=== PATIENT | female | born 2005 | race Caucasian/White ===

== ENCOUNTER → 2024-10-15 08:34 | Outpatient (CLI) | payer OTHER, SELFPAY ==
[2024-10-15 16:19] LABS: HIV 1 & 2 Ab/Ag 4th Gen Combo NEGATIVE (NEGATIVE); Hep C Virus Ab w/Reflex Quant NEGATIVE s/c (NEGATIVE)
[2024-10-16 08:12] LABS: Varicella IgG Antibody Reactive (Non Reactive)
== END ==
PROVIDERS: Referring Provider Family Medicine; Visit Provider Family Medicine
DX: Z34.80 Encounter for supervision of other normal pregnancy, unspecified trimester (principal)
CPT/HCPCS: 36415; 86787; 86803; 86850; 86900; 86901; 87389

== ENCOUNTER → 2024-10-30 08:46 | Outpatient (CLI) | payer OTHER, SELFPAY ==
[2024-10-30 09:56] LABS: Add Manual Diff / Slide Review NO; Basophils Absolute Auto 0 /uL (0-100); Basophils Percent Auto 0.1 % (0-2); Eosinophils Absolute Auto 100 /uL (0-450); Eosinophils Percent Auto 0.7 % (2-4); Hematocrit 34.9 % (36-46); Hemoglobin 11.9 g/dL (12.0-16.0); Lymphocytes Absolute Auto 1200 /uL (1100-4500); Lymphocytes Percent Auto 14.1 % (25-40); Mean Corpuscular HGB Conc 34.2 % (30-36); Mean Corpuscular Hemoglobin 31.5 PG (26-34); Mean Corpuscular Volume 92.1 fL (80-100); Monocytes Absolute Auto 600 /uL (0-900); Monocytes Percent Auto 7.4 % (3-14); Neutrophils Absolute Auto 6500 /uL (1500-7000); Neutrophils Percent Auto 77.7 % (50-75); Platelet Count 156 X10^3/uL (150-400); Red Blood Cell Count 3.78 X10^6/uL (4.0-5.2); White Blood Cell Count 8.4 X10^3/uL (4.5-11.0)
[2024-10-30 10:48] LABS: Hepatitis B Surface Antigen NEGATIVE s/c (NEGATIVE); Rubella Antibody IgG 22.7 IU/mL (>15)
[2024-10-30 12:08] LABS: Appearance Urine UA CLEAR; Bilirubin Urine UA NEGATIVE (NEGATIVE); Color Urine UA YELLOW; Glucose Urine UA NEGATIVE (Negative); Ketones Urine UA NEGATIVE (NEGATIVE); Leukocyte Esterase Urine UA TRACE (NEGATIVE); Nitrite Urine UA NEGATIVE (Negative); Occult Blood Urine UA NEGATIVE (Negative); Protein Urine UA NEGATIVE (Negative); Specific Gravity Urine UA 1.015 (1.000-1.035); Urobilinogen Urine UA 0.2 E.U./dL (0.2)
[2024-10-30 12:12] LABS: pH Urine UA 6.5 (4.5-8.0)
[2024-10-30 12:13] LABS: Urine Volume 10mL (spun)
[2024-10-30 12:14] LABS: Bacteria Urine Many (>30); RBC Urine None Seen (0-5/HPF); Squamous Epithelial Cell Urine 10-30 /HPF (0-5/HPF); WBC Urine 1-5/HPF (0-5/HPF)
[2024-10-31 02:36] LABS: RPR Screen Non Reactive (Non Reactive)
== END ==
PROVIDERS: Referring Provider Family Medicine; Visit Provider Family Medicine
DX: Z34.80 Encounter for supervision of other normal pregnancy, unspecified trimester (principal)
CPT/HCPCS: 36415; 80055; 81003; 81015; 87086

== ENCOUNTER → 2024-11-02 09:16 | Outpatient (CLI) | payer OTHER, SELFPAY ==
[2024-11-02 10:33] LABS: Natera Collection Specimen Collected
== END ==
PROVIDERS: Referring Provider Family Medicine; Visit Provider Family Medicine
DX: Z34.02 Encounter for supervision of normal first pregnancy, second trimester (principal); Z13.79 Encounter for other screening for genetic and chromosomal anomalies
CPT/HCPCS: 82105

== ENCOUNTER → 2024-11-19 10:47 | Outpatient (CLI) | payer OTHER, SELFPAY ==
--- NOTE | 2024-11-19 10:48 | DI.US.S_ITS ---
PROCEDURE: US OB >= 14 WEEKS FETUS INDICATIONS: 20 week anatomy scan OUTSIDE/PRIOR DATING DATA: Last menstrual period (LMP): 07/03/2024 LMP-based estimated date of delivery (KHUSHBOO): 04/09/2025 First dating scan (date and location): 09/09/2024 Estimated date of delivery (KHUSHBOO) from first dating scan: 04/08/2025 The calculations are made using the working KHUSHBOO of 04/09/2025. TECHNIQUE: Real-time scanning was performed of the fetus, with image documentation and biometric measurements. Endovaginal scanning: Not performed COMPARISON: None. FINDINGS: General: A single living intrauterine gestation is present. Presentation: Breech Placenta: Placental position is anterior fundal, without previa. Amniotic fluid index: 18.8 cm, normal range is 5-24 cm. Single deepest vertical pocket is 6.3 cm. heart rate: 145 beats per minute. Maternal cervical canal: Closed and measures 4.7 cm long. Normal lower limit is 2.5 cm. biometrics: Biparietal diameter: 4.8 cm, 20 weeks, 3 days. Head circumference: 17.1 cm, 19 weeks, 5 days. Abdominal circumference: 14.8 cm, 20 weeks, 0 day. Femur length: 3.3 cm, 20 weeks, 2 days. Clinically estimated gestational age: 19 weeks, 6 days. Composite gestational age from present scan: 20 weeks, 1 day. Estimated weight and percentile: 334 g, 61%. Anatomic survey: Neuro: Ventricles are non-dilated at less than 10 mm. Cisterna magna is normal at 3-11 mm. Cerebellum is normal in size and morphology. Nuchal skin fold: Normal at less than 6 mm between 14-21 weeks gestational age. Face: Nose and lips, facial profile are normal. Spine: No evidence for spina bifida. Heart: 4-chambered heart is present, with normal ventricular outflow tracts. Diaphragm: Diaphragm is intact. Stomach: Left-sided stomach is present. Kidneys: No hydronephrosis. Normal is less than 5 mm in 2nd trimester, less than 7 mm in 3rd trimester. Cord: 3-vessel cord has orthotopic insertion. Bladder: Normal in size. Extremities: All 4 extremities identified. IMPRESSION: 1. Single live intrauterine gestation with fetus in breech presentation. heart rate is 145 beats per minute. Normal PAUL at 18.8 cm. Normal growth. Estimated weight is at 61%. 2. Normal anatomic survey. We strive to produce accurate, complete, and clear reports of imaging services. To assist us in improving patient care, this report was composed using standard report templates and voice recognition software. Therefore, it may contain abnormal punctuation, insertions and/or omissions. Occasional wrong-word or sound-alike substitutions may occur. Though we review the report and make efforts to correct it, we do recommend that the report be read carefully in proper context to recognize any text inaccuracies. Dictated by: Lloyd Baldwin M.D. on 11/19/2024 at 19:49 Approved by: Lloyd Baldwin M.D. on 11/19/2024 at 19:51
== END ==
PROVIDERS: Referring Provider Family Medicine; Visit Provider Family Medicine
DX: Z34.82 Encounter for supervision of other normal pregnancy, second trimester (principal); Z3A.20 20 weeks gestation of pregnancy
CPT/HCPCS: 76811

== ENCOUNTER → 2025-01-12 09:13 | Outpatient (CLI) | payer OTHER, SELFPAY ==
[2025-01-12 11:21] LABS: Hematocrit 34.9 % (36-46)
[2025-01-12 11:41] LABS: GTT (PREG) 1 Hour PP 50gm Dose 88 mg/dL (76-139)
== END ==
PROVIDERS: Referring Provider Family Medicine; Visit Provider Family Medicine
DX: Z34.80 Encounter for supervision of other normal pregnancy, unspecified trimester (principal)
CPT/HCPCS: 36415; 82950; 85014; 85018

== ENCOUNTER 2025-02-01 09:16 | Outpatient (CLI) | payer OTHER, SELFPAY | END 2025-02-01 10:00 | disposition home or self-care (01) | LOC: LABOR 09:30 → OB 13:49 | PROVIDERS: Referring Provider Family Medicine; Visit Provider Family Medicine | DX: O36.8130 Decreased fetal movements, third trimester, not applicable or unspecified (principal); Z3A.30 30 weeks gestation of pregnancy | CPT/HCPCS: 59025; G0378; G0379 ==

== ENCOUNTER → 2025-03-03 10:50 | Outpatient (CLI) | payer OTHER, SELFPAY ==
[2025-03-03 12:11] LABS: Hematocrit 34.9 % (36-46); Hemoglobin 11.8 g/dL (12.0-16.0); Mean Corpuscular HGB Conc 33.8 % (30-36); Mean Corpuscular Hemoglobin 31.0 PG (26-34); Mean Corpuscular Volume 91.7 fL (80-100); Platelet Count 175 X10^3/uL (150-400)
[2025-03-03 12:46] LABS: Alanine Aminotransferase 12 IU/L (<35); Albumin 3.7 g/dL (3.5-5.0); Albumin Globulin Ratio 1.4 (1.0-2.8); Alkaline Phosphatase 116 U/L (38-126); Blood Urea Nitrogen 7 mg/dL (7-17); Calcium 9.3 mg/dL (8.4-10.2); Carbon Dioxide 21 mmol/L (22-32); Chloride 107 mmol/L (98-107); Estimated Glomerular Filt Rate > 60 mL/min (>60); Globulin 2.7 g/dL (1.7-4.1); Glucose 75 mg/dL (70-99); HEMOLYSIS < 15 (0-50); Lipase 50 U/L (23-300); Potassium 4.0 mmol/L (3.4-5.1); Sodium 136 mmol/L (137-145); Total Protein 6.4 g/dL (6.3-8.2)
== END ==
PROVIDERS: Referring Provider Family Medicine; Visit Provider Family Medicine
DX: O99.891 Other specified diseases and conditions complicating pregnancy (principal); M54.9 Dorsalgia, unspecified
CPT/HCPCS: 36415; 80053; 83690; 85027

== ENCOUNTER 2025-04-05 06:20 | Inpatient (IN) | payer OTHER, SELFPAY ==
[2025-04-05] MEDS: LACTATED RINGERS 1,000 ML 100 ML IV ×2 (08:55→10:32)
[2025-04-05 09:06] LABS: Add Manual Diff / Slide Review NO; Hematocrit 35.7 % (36-46); Hemoglobin 12.2 g/dL (12.0-16.0); Lymphocytes Absolute Auto 1400 /uL (1100-4500); Mean Corpuscular HGB Conc 34.2 % (30-36); Mean Corpuscular Hemoglobin 30.5 PG (26-34); Mean Corpuscular Volume 88.9 fL (80-100); Platelet Count 160 X10^3/uL (150-400)
[2025-04-05 09:49] LABS: Alanine Aminotransferase 11 IU/L (<35); Albumin 4.0 g/dL (3.5-5.0); Albumin Globulin Ratio 1.3 (1.0-2.8); Alkaline Phosphatase 150 U/L (38-126); Blood Urea Nitrogen 8 mg/dL (7-17); Calcium 9.7 mg/dL (8.4-10.2); Carbon Dioxide 19 mmol/L (22-32); Chloride 105 mmol/L (98-107); Estimated Glomerular Filt Rate > 60 mL/min (>60); Globulin 3.2 g/dL (1.7-4.1); Glucose 76 mg/dL (70-99); HEMOLYSIS 18 (0-50); Potassium 4.1 mmol/L (3.4-5.1); Sodium 134 mmol/L (137-145); Total Protein 7.2 g/dL (6.3-8.2)
[2025-04-05] MEDS: OXYTOCIN PREMIX 30 UNIT/500 ML PLAST..BAG IV (10:52)
--- NOTE | 2025-04-05 11:03 | PM.AN.REGBLK ---
Regional Block Pre-procedure PMH/ROS narrative: active labor PSH/Anesthesia history narrative: no past anesthesia history Exam narrative: h and p obtained, RBA discussed. consent to proceed. Labs: Hct 35.7 % (36-46) L 04/05/25 08:55 Plt Count 160 X10^3/uL (150-400) 04/05/25 08:55 Medications: Current Medications Generic Name Dose Route Start Last Admin Trade Name Freq PRN Reason Stop Dose Admin Calcium Carbonate 1,000 mg 04/05/25 08:38 Calcium Carbonate 500 Mg Tab PO Q2HR PRN Dyspepsia Carboprost Tromethamine 250 mcg 04/05/25 08:38 Carboprost 250 Mcg/Ml Ampul IM Q90M PRN Bleeding Lactated Ringer's 1,000 mls @ 100 mls/hr 04/05/25 08:45 04/05/25 10:32 Lactated Ringers IV 04/05/25 18:44 100 mls/hr CONT [place] Administration Oxytocin/Lactated Ringer's 30 unit in 500 mls @ 200 mls/hr 04/05/25 08:38 Oxytocin Premix IV CONT PRN Bleeding Protocol Tranexamic Acid 1,000 mg/ 100 mls @ 600 mls/hr 04/05/25 08:38 Sodium Chloride IV NOW PRN Bleeding Oxytocin/Lactated Ringer's 30 unit in 500 mls @ 2 mls/hr 04/05/25 10:48 04/05/25 10:52 Oxytocin Premix IV 2 milliunit/min TITRATE [place] 2 mls/hr Protocol Administration 2 MILLIUNIT/MIN Lidocaine HCl 20 ml 04/05/25 08:38 Lidocaine 1% 20 Ml INJ INTRA-OP PRN Post Delivery Methylergonovine Maleate 0.2 mg 04/05/25 08:38 Methylergonovine 0.2 Mg Tablet PO Q6HR PRN Heavy Bleeding Methylergonovine Maleate 0.2 mg 04/05/25 08:38 Methylergonovine 0.2 Mg/Ml Vial IM NOW PRN Bleeding Mineral Oil 30 ml 04/05/25 08:38 Mineral Oil 30 Ml Udc TOP PRN PRN Version Misoprostol 800 mcg 04/05/25 08:38 Misoprostol 200 Mcg Tablet OR NOW PRN Bleeding Misoprostol 400 mcg 04/05/25 08:38 Misoprostol 200 Mcg Tablet SL NOW PRN Bleeding Naloxone HCl 0.2 mg 04/05/25 08:38 Naloxone 0.4 Mg/Ml Vial IV Q2MIN PRN Opiate Reversal Ondansetron HCl 4 mg 04/05/25 08:38 Ondansetron 4 Mg/2 Ml Inj IV Q4HR PRN Nausea And Vomiting Oxytocin 10 unit 04/05/25 08:38 Oxytocin 10 Unit/Ml Vial IM NOW PRN Bleeding Allergies: Allergies Allergy/AdvReac Type Severity Reaction Status Date / Time No Known Drug Allergies Allergy Verified 04/05/25 10:49 --: pt sitting position. drape and prep using sterile technique. vss. l3 l4 interspace id. lido 1% 3cc skin wheel. upon placing tuohy needle at skin pt jumped. localized further with 2cc lido 1% and waited 2 minutes to begin. tuohy advanced. pt having difficult time holding still. with nurse and support person assist able to advance tuohy. KUN to saline felt and SAB 27 gg pencil point needle placed through epidural needle to confirm placement. CSF return. denies paresthesias. removed SAB needle. threaded catheter. denies paresthesias. needle out. dosed as follows. Procedure Insertion date: 04/05/25 Insertion time: : Prep/Local: betadine x3 (chloraprep) and 1% lidocaine Interspace: l3 l4 Patient position: sitting Needle: 17 gauge Tuohy Loss of resistance with: saline KUN at (cm): 6 Catheter placed at SKIN (cm): 12 Sensory level: t10 Insertion: No CSF, No Blood, No Paresthesia with insertion, No Paresthesia with injection and No Test dose reaction Initial Medications TEST DOSE time: : TEST DOSE: 1.5% lidocaine with epinephrine 1:200k (mL): 3 BOLUS DOSE time: :36 BOLUS DOSE (mL): 5 BOLUS DOSE med: other (infusate) Infusion INFUSION: 0.125% bupivacaine and with fentanyl 2 mcg/mL Initial rate (mL/hr): 8 Subsequent interventions: 1319 pt with c/o feeling contractions again. checked level to temperature and sharp pain. bolus 4 mL infusate and increased rate to 10 mL/hr. RN checked cervical dilation and patient is now 8.5 to 9 cm dilated. Post-procedure Anesthesia date START: 04/05/25 Anesthesia time START: 09:16 Anesthesia date END: 04/05/25 Anesthesia time END: 14:30 Post-procedure Anesthesia Assessment: Yes CV function: HR/BP stable, Yes Resp function: RR/sat/airway adequate, Yes Post-op hydration adequate, Yes Pain control adequate, Yes Nausea & vomiting absent, Yes Temperature > 36 C, Yes Mental status appropriate and Yes Anesthesia complications
--- NOTE | 2025-04-05 12:34 | P.HPOB_ITS ---
OB HPI Date/Time Date of admission: 04/05/25 History of Present Condition Chief complaint: LABOR KHUSHBOO Calculator 2 Estimated Delivery Date Method Current WG Current Estimate 04/09/25 LMP (Certain) 39w 3d Other Estimates 04/08/25 Ultrasound #1 39w 4d Estimated Gestational Age (weeks): 39 : 2 Para: 0 Narrative: 20-year-old at [place] 39+3 weeks presenting for labor. Endorses normal movement. Denies vaginal bleeding or denies leakage of fluid. course uncomplicated. care: good care Dating criteria OB: LMP confirmed by 1st trimester US Ultrasounds: normal 1st trimester US and normal mid trimester US Obstetrical complications: none Medical complications OB: none Preadmission Labs Last OB Lab Results: 2 Blood Type A Positive Today, 08:55 Antibody Screen Negative Today, 08:55 Hct, (36-46) 35.7 % L Today, 08:55 Hgb, (12.0-16.0) 12.2 g/dL Today, 08:55 Hep Bs Antigen, (NEGATIVE) Negative s/c 10/30/24, 08: 59 Hepatitis C Antibody, (NEGATIVE) Negative s/c 5, 08:37 Rubella Antibody, (>15) 22.7 IU/mL 10/30/24, 08:59 VZV IgG Antibody, (Non Reactive) Reactive 5, 08:37 Glucose 1 Hr 50 gm, (76-139) 88 mg/dL 01/12/25, 0 9:34 Group B Strep (PCR) Neg for grp b strep 03/17/25, 10:00 Genetic Screens: Quad screen: Normal Prior (ies) Past Pregnancies Del. Date GA/Weeks Labor Lgth Wt Sex Route Outcome Anesthesia Place Delv Breastfeed Preg Comp Name 02/19/24 6-7 spontaneous Delivery Date: 02/19/24 Last Updated by: Arleen Florez RN passed spontaneously, no complications Evaluation Evaluation Baseline heart rate: 135 Variability: Moderate (6-25) monitor accelerations: Present Monitor Decelerations: Absent Contraction Frequency (minutes): 4 Uterine Contraction Intensity: Moderate Category of Tracing: Reactive Status: Category l Dilation (cm): 5 Effacement (%): 90 station: -2 Position of cervix: anterior Consistency: soft Comments: Exam per L&D RN [facility] Medical History (Updated 10/13/24 @ 15:38 by Arleen Florez RN) Arm fracture Surgical History (Updated 10/13/24 @ 15:38 by Arleen Florez RN) History of orthopedic surgery Social History marital status: number of children: 0 household members: none lives independently: Yes caregiver/support person: No [facility] pets and animals: Yes (dog) education level: high school occupational status: employed current occupational exposures/hazards: No (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 ) special jean needs: No travel history: over 6 months ago seatbelt use: always water heater temp set < 120 deg: Yes working smoke detector in home: Yes fire extinguisher in home: Yes carbon monox detector in home: Yes firearms in home: No do you feel safe at home: Yes second hand exposure: No alcohol intake: former substance use type: does not use during the past year weight has: remained stable well-balanced diet: rarely or never daily servings fruits/ve-1 caffeine: Yes (stopped w/ ) Type(s) of exercise: walking Meds Home Medications and Allergies Home Medications ?Medication ?Instructions ?Recorded ?Confirmed ?Type vitamin-ferrous sulfate tab PO 10/13/2403/31 History 27 mg iron-folic acid 0.8 mg tablet Allergies Allergy/AdvReac Type Severity Reaction Status Date / Time No Known Drug Allergies Allergy Verified 04/05/25 10:49 OB Exam Narrative Exam Narrative: General: Well-nourished, no distress HEENT: NC/AT, EOMI, moist mucous membranes CV: RRR, normal S1 S2, no m/g/r Resp: CTAB Abd: Gravid, soft, NTND, +BS Ext: Full ROM, no edema Skin: No rash or lesions Neuro: A&O x3, normal tone, no focal deficits Objective Labs 04/05/25 08:55 04/05/25 08:55 Labs: Laboratory Results - last 24 hr 04/05/25 08:55 WBC 12.6 H RBC 4.01 Hgb 12.2 Hct 35.7 L MCV 88.9 MCH 30.5 MCHC 34.2 RDW 13.6 Plt Count 160 Neut % (Auto) 79.1 H Lymph % (Auto) 11.1 L [place] % (Auto) 9.0 Eos % (Auto) 0.4 L Baso % (Auto) 0.4 Neut # (Auto) 83993 H Lymph # (Auto) 1400 [place] # (Auto) 1100 H Eos # (Auto) 100 Baso # (Auto) 0 Sodium 134 L Potassium 4.1 Chloride 105 Carbon Dioxide 19 L BUN 8 Creatinine 0.53 Estimated GFR > 60 BUN/Creatinine Ratio 15.1 Glucose 76 Calcium 9.7 Total Bilirubin 0.7 AST 27 ALT 11 Alkaline Phosphatase 150 H Total Protein 7.2 Albumin 4.0 Globulin 3.2 Albumin/Globulin Ratio 1.3 Blood Type A Positive Antibody Screen Negative Assessment and Plan Assessment and Plan Assessment and Plan narrative: 20-year-old at [place] 39+3 weeks presenting for normal labor. -admit to L&D -GBS negative, ppx not indicated -pain control prn if desired by patient -PPH risk low -VTE risk low, SCDs with epidural -anticipate vaginal delivery Time-Based Coding :: 20 minutes spent with patient and on the chart (including review of chart, obtaining history, exam, reviewing outside data, placing orders, documenting exam and treatment plan, and counseling patient) on 04/05/2025.
[2025-04-05] MEDS: ONDANSETRON 4 MG/2 ML INJ IV (13:52)
[2025-04-05] MEDS: FENT 2MCG/ML BUPIV 0.125% EPI 200 MCG/100 ML PLAST..BAG 8 MCG EPIDURAL (13:53)
--- NOTE | 2025-04-05 14:44 | P.PCNOB_ITS ---
Events: Labor Augmentation Labor & Delivery Delivery date: 04/05/25 Delivery Time: 14:20 Intrapartal Events: Acceleration Delivery augmentation: pitocin Delivery monitor: external FHT and external uterine Route of delivery: L&D Laceration Description: Vaginal - 1st Degree Estimated blood loss (mL): 75 Anesthesia Type: Epidural Narrative: Patient fully dilated at 1343 and began pushing at 1344. Spontaneous vaginal delivery of a viable female infant in the DANGELO position occurred at 1420. Compound left hand presentation was noted. Milner resuscitated into LOT position, at which point the left arm was swept forward allowing for delivery of the anterior shoulder, with the rest body delivering without difficulty. The was suctioned and stimulated at the perineum, and gave appropriate cry with movement of all extremities. Delayed cord clamping was observed for > 60 seconds. The cord was clamped and cut, and the handed to mother for skin to skin. Cord blood and segment were obtained. The placenta was delivered without difficulty using gentle cord traction and found to be intact with a 3- vessel cord. After fundal massage the uterus was firm and bleeding stopped. The vagina and cervix were examined for lacerations. A first-degree left vaginal wall laceration noted to be hemostatic and was not repair. Patient stable with rooming in, bonding skin to skin and attempting to breastfeed. Milner Baby 1: Infant gender: Female Presentation: vertex Position: Right Occiput Anterior Placenta delivery description: Spontaneous Cord Vessel Description: 3 Vessels score (1 min): 8 score (5 min): 9 weight: 6 lb 14.302 oz Plan for aftercare: Routine care
[2025-04-05 15:14] VITALS: BP 134/61
[2025-04-05] MEDS: LANOLIN OINT 7 GM 1 APPLIC TOP (15:40)
[2025-04-05] MEDS: DERMOPLAST SPRAY 20% 60 ML 1 SPRAY TOP (15:40)
[2025-04-05] MEDS: IBUPROFEN 600 MG TABLET PO ×2 (15:40→22:03)
[2025-04-05] MEDS: ACETAMINOPHEN 325 MG TABLET 650 MG PO ×2 (15:41→22:03)
[2025-04-06] MEDS: ACETAMINOPHEN 325 MG TABLET 650 MG PO ×3 (03:30→15:44)
[2025-04-06] MEDS: IBUPROFEN 600 MG TABLET PO ×3 (03:30→15:44)
[2025-04-06] MEDS: PRENATAL VIT,CALC/IRON/FOLIC 1 TABLET 1 TAB PO (09:22)
[2025-04-06] MEDS: DOCUSATE 100 MG CAPSULE PO (09:22)
[2025-04-06 14:31] VITALS: BP 119/70; PULSE 77; RESP 17; TEMP 36.7
--- NOTE | 2025-04-06 14:56 | P.DS_ITS ---
Discharge Providers Provider Date of admission: 04/05/25 06:20 Discharge Date: 04/06/25 Primary care physician: Maico Desai MD Consults: 04/05/25 15:13 Consult to Smart Grid Engineer Routine Comment: Discharge provider: Maico Desai MD Summary Hospital Course Date Patient Seen: 04/06/25 Diagnoses: # # mother Hospital Course: Admitted for normal labor on 04/05/2025. Progressed adequately with pitocin augmentation to complete dilation over the course of 7 hours. She had an uncomplicated of a live female with a hemostatic first degree vaginal laceration. Her course was uncomplicated. At discharge patient is ambulating well, tolerating normal diet, breast-feeding without difficulty, and pain is adequately controlled. She reports bleeding is similar to normal menses. Peripartum Data Laceration Description: Vaginal - 1st Degree complications: none [employer]: Gender: Female Disposition of : home Discharge Diagnosis (1) (spontaneous vaginal delivery): Start Date: 04/05/25 Status: Acute (2) Mother currently breast-feeding: Start Date: 04/05/25 Status: Acute Status at Discharge Cognitive/behavioral status at discharge: oriented Functional status at discharge: independent ambulation Overall status at discharge: patient is progressing back to baseline Time Spent with Patient Time attestation: Total time spent providing and/or coordinating discharge services: 25 minutes Objective Labs 04/05/25 08:55 04/05/25 08:55 Exam Vital Signs (past 8 hours): - 04/06/25 14:31 Temperature 98.1 F Pulse Rate 77 Respiratory Rate 17 Blood Pressure 119/70 Narrative Exam Narrative: General: Well-appearing, well-nourished, no distress HEENT: Moist mucous membranes, no pallor CV: Regular rate and rhythm, no murmur auscultated Resp: CTAB, comfortable work of breathing Abdomen: Soft, bowel sounds present, fundus firm below umbilicus with appropriate tenderness Extremities: No edema, no calf tenderness or evidence of DVT Discharge Plan Discharge Plan Patient Disposition: Home Discharge orders & Medications Prescriptions: New acetaminophen 325 mg Tablet 650 mg PO Q6H PRN (Reason: Pain, Mild (1-3)) Qty: 60 0RF ibuprofen 600 mg Tablet 600 mg PO Q6H Qty: 60 0RF Purelan Cream 1 applic topical PRN PRN (Reason: Sore Nipples) Qty: 7 10RF polyethylene glycol 3350 17 gram/dose powder 17 g PO DAILY Qty: 510 1RF Continued vit-ferrous sulfat-FA 27 mg iron- 0.8 mg tablet 1 tab PO DAILY Follow up/Referrals: Maico Desai MD [Primary Care Provider, [facility]] - 05/18/25 12:00 pm Referral Note: Please check in at 11:45am for your 6 week appointment. Visit Report/Discharge Packet Stand Alone Forms: Patient Portal/API, Stroke Signs & Symptoms Discharge Data Primary Care Provider: Maico Desai
== END 2025-04-06 15:50 | disposition home or self-care (01) | DRG 807 ==
PROVIDERS: Admitting Provider Family Medicine; PCP Family Medicine; Referring Provider Family Medicine; Visit Provider Student in an Organized Health Care Education/Training Program
DX: O80 Encounter for full-term uncomplicated delivery (principal); Z37.0 Single live birth; Z3A.39 39 weeks gestation of pregnancy
CPT/HCPCS: 36415; 59025; 59050; 59400; 80053; 85025; 86850; 86900; 86901; G0379; J2405; J2590